=== PATIENT | female | born 1955 | race African-American/Black ===

== ENCOUNTER → 2017-02-04 | Day surgery (SDC) | payer OTHER ==
[~2017-02-04] MED LIST: ASPIRIN81 M2 PO; B-121000 MC1 PO; BYDUREON2 MG SQ; FERROUS SULFAT325 MG PO; GLUCOTROL XL5 M1 PO; HYDROCHLOROTHIA25 MG PO; IBUPROFEN800 MG PO; IRON325 ( 65 ) PO; LIPITOR40 MG PO; LISINOPRIL10 MG PO; LO-DOSE ASPIRIN81 M1 PO; MAGNESIUM400 M1 PO; METFORMIN HCL500 M1 PO; METFORMIN HCL500 M4 PO; NEURONTIN300 MG PO; POTASSIUM CHLO10 MEQ PO; PRAVASTATIN SOD40 MG PO; ZESTRIL5 MG PO; ZYRTEC10 M1 PO; ZYRTEC10 M2 PO
--- NOTE | ~2017-02-04 | OR ---
Unit #: [id number] #: [id number] Patient: AMAIRANI CURTIS [id number] [address] [address] [id number] O MR#: [id number] NAME: AMAIRANI CURTIS. ROOM: Date of Procedure: 02/04/2017 Admission Date: 02/04/2017 Surgeon: Ethan Johnson M.D. : 1955 Attending Physician: Ethan Johnson M.D. Primary Care Physician: Lori Muller OPERATIVE REPORT PROCEDURE PERFORMED Colonoscopy with snare polypectomy. INDICATIONS FOR PROCEDURE A 61-year-old with history of polyps in the past, undergoing colonoscopy for surveillance. MEDICATIONS Monitored anesthesia. POSTOPERATIVE FINDINGS 1. Two polyps on rectum most likely hypoplastic, snared and sent for histopathology. 2. Rest of the exam to cecum was normal. 3. Good prep. PLAN 1. Follow up on the pathology report. 2. History of adenoma in the past. Repeat colonoscopy in 5 years. DESCRIPTION OF PROCEDURE The patient was explained of the procedure, risks, and benefits along with the risks and benefits of anesthesia. She was brought to the endoscopy room. Propofol anesthesia was given. Rectal exam was done, which was normal. Colonoscope was lubricated, passed up the rectum, advanced under direct vision all the way to the cecum. Cecum was identified by ileocecal valve and appendiceal orifice. I then started to pull the scope out carefully looking. No polyps, masses, or colitis was seen. Rectum shows 2 small polyps that were snared and sent for histopathology. I retroflexed in the rectum, which was unremarkable. Gently, the scope was pulled out. She tolerated it well. Dictated by... Saskia Umanzor/nurial TD: 02/04/2017 23:11 JOB #: [id number] Unit #: [id number] #: [id number] Patient: AMAIRANI CURTIS OPERATIVE REPORT Page 1 of 1 X Ethan Johnson MD PROCEDURE OPERATIVE NOTE
== END | disposition home or self-care (01) ==
LOC: COPS 09:53
DX: Z12.11 Encounter for screening for malignant neoplasm of colon (principal); Z86.010 Personal history of colon polyps; K62.1 Rectal polyp; E11.9 Type 2 diabetes mellitus without complications; Z79.84 Long term (current) use of oral hypoglycemic drugs; I10 Essential (primary) hypertension
CPT/HCPCS: 88305